=== PATIENT | female | born 1980 | race Two or more races ===

== ENCOUNTER 2023-08-09 16:51 | Emergency (ER) | payer OTHER ==
[~2023-08-09] VITALS: Ht 165.1 cm; Wt 95.3 kg
[2023-08-09 20:43] LABS: HEMATOCRIT 37.5 % (36.0-45.00); HEMOGLOBIN 12.6 g/dL (12.0-15.00); MEAN CELL VOLUME 90.6 fL (80.00-100.00); MEAN CORPUSCULAR HEMOGLOBIN 30.5 pg (27.00-32.0); MEAN CORPUSCULAR HGB CONC 33.6 g/dl (32.0-36.0); PLATELET COUNT 291 K/uL (150-450); RED BLOOD COUNT 4.14 M/uL (4.00-6.00); RED CELL DISTRIBUTION WIDTH 13.6 % (11.5-14.5)
[2023-08-09 20:50] LABS: CREATININE SERUM 0.75 mg/dL (0.55-1.02); GFR 83.95; POTASSIUM 4.03 mEq/L (3.5-5.1)
== END 2023-08-09 22:15 | disposition home or self-care (01) ==
LOC: ER 16:51
DX: R10.2 Pelvic and perineal pain (principal); M54.50 Low back pain, unspecified; D57.80 Other sickle-cell disorders without crisis; N93.8 Other specified abnormal uterine and vaginal bleeding; Z88.8 Allergy status to other drugs, medicaments and biological substances